=== PATIENT | male | born 1985 | race African-American/Black ===

== ENCOUNTER 2023-02-22 00:15 | Emergency (ER) | payer MEDICAID ==
[~2023-02-22] VITALS: Ht 170.2 cm; Wt 73.0 kg
[2023-02-22 03:11] LABS: BASOPHILS % 1.6 % (0.0-2.0); EOSINOPHILS % 3.2 % (0.0-5.0); HEMATOCRIT. 47.1 % (42.0-52.0); HEMOGLOBIN. 16.5 g/dL (14.0-18.0); LYMPHOCYTES % 23.6 % (20.0-50.0); MEAN CORPUSCULAR HEMOGLOBIN 32.8 pg (28.0-32.0); MEAN CORPUSCULAR VOLUME 93.6 fL (80.0-94.0); MEAN PLATELET VOLUME 9.4 fl (7.4-10.4); MONOCYTES % 14.8 % (2.0-8.0); NEUTROPHILS % 56.8 % (40.0-76.0); PLATELET 235 x1000/uL (130-400); RED BLOOD CELL COUNT 5.03 mill/uL (4.7-6.1); RED CELL DISTRIBUTION WIDTH 12.6 % (11.6-14.6)
[2023-02-22 03:19] LABS: CHLORIDE 99 mEq/L (98-107)
[2023-02-22] MEDS ORDERED: FAMOTIDINE 20MG/2ML VIAL IV NR (04:00)
[2023-02-22] MEDS ORDERED: SODIUM CHLORIDE 0.9% 1,000 ML IV ONE (04:00)
[2023-02-22] MEDS ORDERED: POTASSIUM CHLORIDE 20MEQ TABLET SR PO NR (04:00)
[2023-02-22] MEDS ORDERED: ONDANSETRON HCL 4MG/2ML INJ IV NR (04:00)
[2023-02-22 05:51] VITALS: BP 115/83
[2023-02-22] MEDS ORDERED: PROT20 MT (05:52)
[2023-02-22] MEDS ORDERED: ONDA4TAB50 MT (05:52)
== END 2023-02-22 06:36 | disposition home or self-care (01) ==
LOC: ER 00:15
DX: K52.9 Noninfective gastroenteritis and colitis, unspecified (principal); E87.6 Hypokalemia
CPT/HCPCS: 36415; 76705; 80053; 83690; 85025; 96361; 96374; 96375; 99285; J2405; J3490; Z7610